=== PATIENT | female | born 1950 | race Caucasian/White ===

== ENCOUNTER → 2020-08-03 | Outpatient (CLI) | payer MEDICARE ==
[~2020-08-03] MED LIST: DOBUTamine DRIP for NUC MED 500 MG in DEXTROSE/WATER 1 250ML.BAG IV ONE
--- NOTE | 2020-08-04 10:15 | ECHOS ---
Stress Test Results/Findings: Exam Performed: dobutamine stress echo with con Exam Date: 08/03/20 Reason for Exam: CP Height: 5 ft 5 in Weight: 83 kg Protocol: DOBUTAMINE STRESS ECHO Stage: 40 mcg Duration of Exercise: 10:36 Resting Heart Rate: 73 Resting Blood Pressure: 117/75 Maximum Achieved Heart Rate: 135 Maximum Achieved Blood Pressure: 159/79 85% PMHR: 129 100% PMHR: 152 METS: na Technologist Comment: Stress Test Results/Findings: Baseline heart rate 73 beats a minute, Baseline blood pressure 117/75 mmHg Baseline 12-lead ECG showed sinus rhythm with a 0.[address] depression Patient received dobutamine infusion per protocol There is no ECG evidence for ischemia. No arrhythmias are noted Peak heart rate 135 beats a minute. Peak blood pressure 159/79 mmHg Baseline 2-D echo images were suboptimal and echo contrast was used to delineate the LV endocardial borders With dobutamine infusion there was a stepwise increment in overall LV contractility without development of any wall motion abnormalities @Recovery region global LV systolic function remained normal Impression No ECG or echocardiographic evidence for ischemia Plan Stop Bystolic completely at this time Stop isosorbide after 2 weeks Home blood pressure monitoring Follow-up with Dr. Montiel in August for reevaluation of blood pressure, once off both these medications Continue Repatha And baby aspirin for now Additional CC's: Miryam MUÑOZ
== END | disposition home or self-care (01) ==
LOC: RADNMMAIN 09:44
PROVIDERS: ATTEND Internal Medicine Clinical Cardiac Electrophysiology
DX: R07.9 Chest pain, unspecified (principal); I25.10 Atherosclerotic heart disease of native coronary artery without angina pectoris
CPT/HCPCS: 93351; J1250; Q9950

== ENCOUNTER 2020-09-27 06:18 | Day surgery (SDC) | payer MEDICARE ==
[~2020-09-27 06:18] MED LIST changes: +ALPRAZolam 0.25 MG TAB PO PRN; +ALPRAZolam 0.5 MG TAB PO PRN; -DOBUTamine DRIP for NUC MED 500 MG in DEXTROSE/WATER 1 250ML.BAG IV ONE; +NITROGLYCERIN SL TABS 0.4 MG TAB SUBLINGUAL PRN; +SODIUM CHLORIDE 0.9% 1,000 ML in EMPTY BAG 1 BAG IV ONE
[2020-09-27] MEDS ORDERED: SODIUM CHLORIDE 0.9% 1,000 ML IV ONE (06:46)
[2020-09-27] MEDS ORDERED: ASPIRIN 325 MG TAB PO ONE (07:00)
[2020-09-27 07:10] LABS: Basophils # (A) 0.1 k/uL (0-0.2); Basophils % (A) 2 %; Eosinophils # (A) 0.1 k/uL (0-0.7); Eosinophils % (A) 2 %; HGB 15.2 gm/dL (11.4-16.0); Lymphocytes # (A) 1.5 k/uL (1.0-4.8); Lymphocytes % (A) 23 %; MCH 31.5 pg (25.0-35.0); MCHC 33.7 g/dL (31.0-37.0); MCV 93.3 fL (80.0-100.0); Mean Platelet Volume 6.6; Monocytes # (A) 0.4 k/uL (0-1.0); Monocytes % (A) 6 %; Neutrophils # (A) 4.3 k/uL (1.3-7.7); Neutrophils % (A) 65 %; Platelet Count 229 k/uL (150-450); RBC 4.83 m/uL (3.80-5.40); WBC 6.5 k/uL (3.8-10.6)
[2020-09-27] MEDS ORDERED: VERAPAMIL 2.5 MG/ML 2 ML AMP ONE (07:22)
[2020-09-27] MEDS ORDERED: HEPARIN SODIUM 1,000 UN/ML (10ML VL) ONE (07:22)
[2020-09-27] MEDS ORDERED: LIDOCAINE 1% INJ 10MG/ML (20 ML MDV) ONE (07:22)
[2020-09-27 07:23] LABS: African American GFR (CKD) >90 (>60 ml/min/1.73 sqM); Anion Gap 9 mmol/L; Blood Urea Nitrogen 14 mg/dL (7-17); Calcium 9.5 mg/dL (8.4-10.2); Carbon Dioxide 21 mmol/L (22-30); Chloride 107 mmol/L (98-107); Non-African American GFR(CKD) 84 (>60 ml/min/1.73 sqM); Sodium 137 mmol/L (137-145)
[2020-09-27 07:37] LABS: Glucose 104 mg/dL (74-99); Potassium 5.2 mmol/L (3.5-5.1)
[2020-09-27] MEDS ORDERED: MIDAZOLAM 2 MG/2 ML VIAL IV ONE ×2 (07:47→07:59)
[2020-09-27] MEDS ORDERED: LIDOCAINE 1% INJ 10MG/ML (20 ML MDV) SQ ONE (07:48)
[2020-09-27] MEDS: VERAPAMIL SYRINGE (5 MG/10 ML) INTRAARTER ONE ×2 (07:49→08:27)
[2020-09-27] MEDS ORDERED: PRASUGREL 10 MG TAB ONE (08:03)
[2020-09-27] MEDS ORDERED: PRASUGREL 10 MG TAB PO ONE (08:06)
[2020-09-27] MEDS ORDERED: NITROGLYCERIN 1000MCG/10ML SYRINGE INTRACORON ONE (08:13)
[2020-09-27] MEDS ORDERED: IOPAMIDOL-370 125ML BTL INJ ONE (08:27)
[2020-09-27] MEDS ORDERED: NITROGLYCERIN SL TABS 0.4 MG TAB SUBLINGUAL PRN ×2 (08:58→09:00)
[2020-09-27] MEDS ORDERED: SODIUM CHLORIDE 0.9% 1,000 ML IV SCH (09:00)
[2020-09-27] MEDS ORDERED: MAG HYDROX/AL HYDROX/SIMETH 30 ML CUP PO PRN (09:00)
[2020-09-27] MEDS ORDERED: RX INFO: IV CONTRAST WAS GIVEN 1 EACH MISC MISCELLANE PRN (09:00)
[2020-09-27] MEDS ORDERED: ATROPINE SULFATE 0.1 MG/ML 10ML SYRINGE IV PRN (09:00)
[2020-09-27] MEDS ORDERED: NON FORMULARY DRUG (Evolocumab [Repatha Sureclick] 140 MG/ML Pen.Injctr) SQ SCH (09:00)
[2020-09-27] MEDS ORDERED: ZOLPIDEM 5 MG TAB PO PRN (09:00)
[2020-09-27] MEDS: LORATADINE 10 MG TAB PO SCH (10:01)
[2020-09-27] MEDS: FAMOTIDINE 20 MG TAB PO SCH ×2 (10:01→20:49)
[2020-09-27] MEDS: CALCIUM CARBONATE 500 MG CHEWABLE PO SCH ×2 (10:01→20:49)
--- NOTE | 2020-09-27 10:49 | CC ---
CARDIAC CATHETERIZATION REPORT CARDIAC CATHETERIZATION AND PERCUTANEOUS CORONARY INTERVENTION: DATE OF SERVICE: 09/27/2020 PERFORMING PHYSICIAN: Mat Newton MD. PROCEDURE PERFORMED: 1. Selective right and left coronary angiogram. 2. Left heart catheterization. 3. Successful stenting of the proximal and mid left anterior descending artery using 3.5 x 15 and 325 x 15 mm Xience drug-eluting stent with an excellent angiographic results. INDICATION: This is a very pleasant 69-year-old female patient who sees Dr. Montiel with hypertension and dyslipidemia who was experiencing symptoms of chest discomfort and underwent a stress test and that came into be unremarkable. Because she continues to be symptomatic, a heart catheterization was advised. APPROACH: Right radial artery. COMPLICATION: None. LEVEL OF SEDATION: Moderate with sedation length of 45 minutes. PROCEDURE DESCRIPTION: After obtaining an informed consent, the patient was brought to the cardiac computer lab assistant. The right radial artery was cannulated using micropuncture technique, the micropuncture wire passed easily, then I placed a 6-Nigerian sheath at the right radial artery. I did after that gave the patient 2 mg of verapamil IA and 10,000 units of heparin IV. Selective right and left coronary angiogram performed using JR4 and JL3.5 catheters. Diagnostic procedure was completed. Then I did intervention on the LAD, please see a separate paragraph for that. SELECTIVE CORONARY ANGIOGRAM: 1. The RCA is a large caliber vessel. It is a dominant vessel and appeared to be angiographically normal. Distally bifurcates into PDA and PLV branches, both appeared to be angiographically normal. 2. The left main is angiographically normal, it bifurcates into a small left circumflex and left anterior descending artery. 3. The left circumflex is a large caliber vessel. The left circumflex is small to medium caliber vessel, a nondominant vessel and appeared to be angiographically normal. 4. The LAD is a large caliber vessel. It proximally gives rise into a large diagonal branch. The first and second diagonal branches both appeared to be angiographically normal. The LAD after that has a lesion appeared to be in the range of 70%. The mid LAD by the bifurcation of the third diagonal branch has a lesion appeared to be in the range of 80%. The LAD distally appeared to be angiographically normal. 5. HEMODYNAMICS: The LVEDP was 10 to 12 mmHg without significant gradient across the aortic valve. 6. PCI of the LAD: Anticoagulation was initiated using heparin. A CT was monitoring throughout the procedure. Subsequently, I did engage the left main using JL3.5 guide. I did wire the LAD using a run-through wire. Balloon angioplasty was performed on the proximal and mid LAD using 2.5 x 12 mm balloon before I deployed approximately 5 x 15 and distally 3 x 15 mm Xience. Both stents were deployed at 16 atmospheres for 20 seconds. Final angiogram showed excellent angiographic results and the procedure was completed without any complication. CONCLUSION: 1. Severe disease involving the proximal and mid LAD. I did perform successful stenting of both the proximal and mid LAD. 2. Normal right coronary artery. POST-PROCEDURE MANAGEMENT: 1. Dual anti-platelet therapy. 2. Risk factor modifications. 3. Follow up with the patient. MMODL / IJN: [id number] /
[2020-09-27] MEDS ORDERED: ASPIRIN 81 MG PO SCH (12:00)
[2020-09-27] MEDS ORDERED: CHOLECALCIFEROL 1,000 UNIT TAB PO SCH (12:00)
[2020-09-27] MEDS ORDERED: FUROSEMIDE 20 MG TAB PO SCH (12:00)
[2020-09-27] MEDS ORDERED: FOLIC ACID 1 MG TAB PO SCH (12:00)
[2020-09-27] MEDS ORDERED: MULTIVITAMINS, THERA 1 EACH TAB PO SCH (12:00)
[2020-09-27 13:26] VITALS: BMI 30.9
[2020-09-27] MEDS ORDERED: LATANOPROST 0.005% OPHTH DROPS 2.5 ML BTL BOTH EYES SCH (17:30)
[2020-09-27] MEDS ORDERED: VALSARTAN 80 MG TAB PO SCH (21:00)
[2020-09-27] MEDS ORDERED: ATORVASTATIN 80 MG TAB PO SCH (21:00)
[2020-09-28] MEDS: FAMOTIDINE 20 MG TAB PO SCH (08:18)
[2020-09-28] MEDS: LORATADINE 10 MG TAB PO SCH (08:18)
[2020-09-28] MEDS: CALCIUM CARBONATE 500 MG CHEWABLE PO SCH (08:18)
--- NOTE | 2020-09-28 08:35 | P.DS ---
Providers Expected date of discharge: 09/28/20 Attending physician: Mat Newton Consults: 09/27/20 09:00 Consult Physician Routine Consulting Provider: [facility] Consult Reason/Comments: Post Interventional patient Do you want consulting provider notified?: Already Contacted Primary care physician: [facility] Course: The patient is a 69-year old female with past med, hypertension, and hyperlipidemia, who follows with Dr Montiel in the office. The patient underwent coronary angiography yesterday with Dr Newton after experiencing intermittent chest pains with exertion and daytime fatigue. Her most recent stress echocardiogram was unremarkable. Coronary angiography showed two LAD lesions, proximal lesion 70% and mid lesion 80%. Successful stenting was performed. The patient was monitored overnight without any complications. Patient interviewed and examined this morning lying comfortably in bed. She denies any chest pain, chest pressure, palpitations, dyspnea, dizziness, or vertigo. She states she typically always feels well in the morning. On exam, rate is regular. No murmurs, gallops, or rubs. No edema. right radial site is clean, dry, and intact. +2 pulse noted. We discussed her new medications in detail. She will be discharged on dual antiplatelet therapy and followup in the office with Dr Montiel in one week for a site check. Procedures: PCI of LAD; proximal and mid lesions Plan - Discharge Summary Discharge Rx Participant: Yes New Discharge Prescriptions: No Action Nitroglycerin Sl Tabs [Nitrostat] 0.4 mg SUBLINGUAL Q5M PRN PRN Reason: Chest Pain Evolocumab [Repatha Sureclick] 140 mg SQ Q14D metHOTREXate sodium [Methotrexate] 10 mg PO WE Latanoprost/Pf [Latanoprost 0.005% Eye Drop] 1 drop BOTH EYES W/SUPPER Multivitamins, Thera [Multivitamin (formulary)] 1 tab PO 1200 Furosemide [Lasix] 20 mg PO 1200 Folic Acid 1 mg PO 1200 Famotidine [Pepcid] 20 mg PO BID Valsartan [Diovan] 80 mg PO HS Cholecalciferol [Vitamin D3 (25 Mcg = 1000 Iu)] 5,000 unit PO 1200 Calcium Carbonate [Calcium] 600 mg PO BID Aspirin [Adult Low Dose Aspirin EC] 81 mg PO 1200 Loratadine [Claritin] 10 mg PO DAILY Prasugrel [Effient] 10 mg PO DAILY Aspirin 325 mg PO DAILY Discharge Medication List Aspirin [Adult Low Dose Aspirin EC] 81 mg PO 1200 09/23/20 [History] Calcium Carbonate [Calcium] 600 mg PO BID 09/23/20 [History] Cholecalciferol [Vitamin D3 (25 Mcg = 1000 Iu)] 5,000 unit PO 1200 09/23/20 [History] Evolocumab [Repatha Sureclick] 140 mg SQ Q14D 09/23/20 [History] Famotidine [Pepcid] 20 mg PO BID 09/23/20 [History] Folic Acid 1 mg PO 1200 09/23/20 [History] Furosemide [Lasix] 20 mg PO 1200 09/23/20 [History] Latanoprost/Pf [Latanoprost 0.005% Eye Drop] 1 drop BOTH EYES W/SUPPER 09/23/20 [History] Multivitamins, Thera [Multivitamin (formulary)] 1 tab PO 1200 09/23/20 [History] Nitroglycerin Sl Tabs [Nitrostat] 0.4 mg SUBLINGUAL Q5M PRN 09/23/20 [History] Valsartan [Diovan] 80 mg PO HS 09/23/20 [History] metHOTREXate sodium [Methotrexate] 10 mg PO WE 09/23/20 [History] Loratadine [Claritin] 10 mg PO DAILY 09/27/20 [History] Aspirin 325 mg PO DAILY 09/28/20 [History] Prasugrel [Effient] 10 mg PO DAILY 09/28/20 [History] Follow up Appointment(s)/Referral(s): Chu Montiel MD [STAFF PHYSICIAN] - 1 Week Activity/Diet/Wound Care/Special Instructions: No lifting >10lb till followup visit
[2020-09-28] MEDS ORDERED: PRASUGREL 10 MG TAB PO SCH (09:00)
[2020-09-28 09:09] VITALS: BP 142/86; PULSE 79; RESP 16; TEMP 98
[2020-09-29] MEDS ORDERED: metHOTREXate sodium 2.5 MG TAB PO SCH (09:00)
== END 2020-09-28 11:06 ==
LOC: CATHCVL 06:18 → 3NCARDOBS 08:29 → CATHCVL 09-28 11:06
PROVIDERS: ATTEND Internal Medicine Interventional Cardiology
DX: I25.118 Atherosclerotic heart disease of native coronary artery with other forms of angina pectoris (principal); I10 Essential (primary) hypertension; E78.5 Hyperlipidemia, unspecified; E03.9 Hypothyroidism, unspecified
CPT/HCPCS: 93458; 80048; 85025; C9600; C1887; C1725; C1769 ×2; C1874; C1894; J2250; J2001; J1644; Q9967